=== PATIENT | female | born 1940 | race Caucasian/White ===

== ENCOUNTER → 2016-03-27 | Outpatient (CLI) | payer BC ==
[~2016-03-27] MED LIST: ASPI81TA28 PO; JUICE PLUS PO; MULT-190 PO; OXYC-57 PO; WARF2TAB PO
== END | disposition home or self-care (01) ==
LOC: C.RDSM 12:25
PROVIDERS: ATTEND Physical Medicine & Rehabilitation Sports Medicine
DX: Z96.643 Presence of artificial hip joint, bilateral (principal)

== ENCOUNTER → 2016-06-26 | Outpatient (CLI) | payer BC | END | disposition home or self-care (01) | LOC: C.RDSM 13:30 | PROVIDERS: ATTEND Physical Medicine & Rehabilitation Sports Medicine | DX: Z96.643 Presence of artificial hip joint, bilateral (principal) ==

== ENCOUNTER 2016-08-02 08:22 | Inpatient (IN) | payer BC, OTHER ==
[2016-07-14 11:30] VITALS: BMI 27.0
--- NOTE | 2016-07-14 12:06 | PAT Medication Instructions ---
Service Date Jul 14, 2016. Current Home Medication List Aspirin (Aspirin Ec), 81 MG PO QPM Ocuvite Preservision (Ocuvite Preservision), 1 TAB PO BID [Juice Plus], 2 CAPSULES PO TID Medication Instructions For Your Scheduled Surgery - Hold the following medications 2 weeks prior to surgery: [Juice Plus], 2 CAPSULES PO TID - Hold the following medications the morning of surgery: Ocuvite Preservision (Ocuvite Preservision), 1 TAB PO BID - Take the following medications as scheduled the night before surgery: Ocuvite Preservision (Ocuvite Preservision), 1 TAB PO BID Aspirin (Aspirin Ec), 81 MG PO QPM If you have any questions please call us at [phone] (Araceli Barclay PA-C) or [phone] or [phone]
--- NOTE | 2016-07-14 12:39 | DIAGNOSTIC IMAGING REPORT ---
CHEST 2 VIEWS ROUTINE CLINICAL HISTORY: Preoperative chest COMPARISON STUDY: November 2011 FINDINGS: The cardiac and mediastinal contours are normal. There is no evidence of focal pulmonary consolidation. There is no evidence of failure. No pleural effusions are visualized.[ IMPRESSION: No active disease in the chest. Electronically signed by: Osmany Wade M.D. 07/14/2016 12:38 PM Dictated Date/Time: 07/14/2016 12:38 PM
[2016-07-14 13:23] LABS: URINE APPEARANCE CLEAR (CLEAR); URINE BILIRUBIN NEG (NEG); URINE COLOR YELLOW; URINE NITRITE NEG (NEG); URINE PH 6.5 (4.5-7.5); URINE SPECIFIC GRAVITY 1.013 (1.000-1.030); UROBILINOGEN NEG (NEG)
[2016-07-14 13:24] LABS: MANUAL MICROSCOPIC REQUIRED? NO; REVIEW REQ? NO
[2016-07-14 13:28] LABS: PARTIAL THROMBOPLASTIN RATIO 1.1; PROTHROMBIN TIME (PATIENT) 10.7 SECONDS (9.0-12.0)
[2016-07-14 13:41] LABS: BUN/CREATININE RATIO 25.6 (10-20); CALCIUM 8.7 mg/dl (8.5-10.1); CREATININE 0.57 mg/dl (0.60-1.20); POTASSIUM 4.2 mmol/L (3.5-5.1)
--- NOTE | 2016-07-31 18:08 | HISTORY & PHYSICAL EXAMINATION ---
DATE OF ADMISSION: 08/02/2016 CHIEF COMPLAINT: Right hip poly wear. HISTORY OF PRESENT ILLNESS: This 75-year-old white female presents to the office with complaints of right hip unusual sensations. She denies any emerson pain. She feels as though the hip is sometimes loose or slipping. Occasional catching. She denies any dislocation. Symptoms are intermittent. Serial imaging overtime has revealed that the poly liner has asymmetric wear. Due to this, surgical intervention was recommended. She does not use any assistive devices. She denies any numbness or tingling. No difficulty with ADLs. No trauma since her hip replacement. She is scheduled to undergo a right hip open poly exchange with possible lock liner versus cup exchange on 08/02/2016. The initial right hip replacement was 12/21/2011. She initially had pain in her hip since August 2010 that was resolved with the hip replacement. No other complaints at this point. PREVIOUS SURGERIES: Tonsillectomy in 1945, right shoulder surgery in 1953, left total knee arthroplasty in 1997, left hip arthroplasty in 2003, right total knee arthroplasty in 2004, right total hip arthroplasty 12/21/2011, tubal ligation in 1971. PAST MEDICAL HISTORY: Significant for history of hepatitis A, GERD, low back pain, osteoarthritis, rosacea, and macular degeneration. ALLERGIES: KNOWN ALLERGY TO CODEINE WHICH CAUSES NAUSEA. FAMILY HISTORY: Significant for osteoarthritis, heart disease, hypertension, and basal cell skin cancer. CURRENT MEDICATIONS: Aspirin 81 mg daily, Juice Plus 2 capsules t.i.d., PreserVision 2 tablets p.o. daily. SOCIAL HISTORY: The patient is . No tobacco use. Retired. REVIEW OF SYSTEMS: Significant for above stated conditions, otherwise unremarkable. PHYSICAL EXAMINATION: GENERAL: Well-developed, well-nourished elderly white female in no acute distress. Sitting on a bed. Alert and oriented. SKIN: Warm and dry with good turgor. No rashes or lesions. No ecchymosis or erythema. HEENT: Normocephalic, atraumatic. Eyes PERRLA, EOMI. Nares patent bilaterally without turbinate enlargement. Oropharynx without erythema or exudate. No lesions noted. Uvula midline. Oral mucosa moist. Fair dentition. HEART: RRR. No MGR. LUNGS: Clear to auscultation bilaterally. No crackles, rhonchi or wheezing. Good air movement. ABDOMEN: Bowel sounds present x4, soft, nontender. No organomegaly. No masses. MUSCULOSKELETAL: Right hip evaluation reveals no obvious asymmetry or deformity. Supple motion forward flexion as well as internal and external rotation. No cogwheeling. No crepitus. Hip flexion is to just greater than 90 degrees. Ambulatory with a normal gait. No pain with palpation over the IT band, greater trochanter, or anterior flexion crease. NEUROLOGIC: Gross sensation is intact across the lower extremities by soft touch. Peripheral pulses are 2+. Cranial nerves II-XII are intact. DATA: Radiographic images previously obtained show superior migration of the ball within the cup. There is indication of asymmetric plastic liner wear. 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 PLAN: Informed written consent was obtained to proceed with right hip open poly exchange with possible lock liner versus cup exchange. Postoperative prescriptions for Percocet and Coumadin will be provided at discharge from the hospital. Anticipate discharge to home with outpatient PT. She already has a walker and cane. Medical clearance has been obtained from Dr. Olivier. Preoperative lab work has been ordered. ARNAV
[2016-08-02] VITALS (9 sets, daily range): BP systolic 98–138; BP diastolic 56–79; PULSE 75–85; TEMP 36.3–36.5; O2SAT 95–100; Ht 157.5 cm; Wt 67.9 kg
[~2016-08-02] VITALS: Ht 157.5 cm; Wt 67.9 kg
[~2016-08-02 08:22] MED LIST changes: +BUPIVACAINE 0.5 % 5 MG/1 ML PF 10ML VIAL ONE; +CEFAZOLIN 2000 MG/60 ML D5W 60 ML IV SCH; +LACTATED RINGER'S 1000ML 1,000 ML IV SCH; +LACTATED RINGER'S 1000ML 500 ML IV ONE; +LACTATED RINGER'S 1000ML IV SCH; -OXYC-57 PO; +ROPIVACAINE 5MG/ML 30 ML 150 MG, BUPIVACAINE/EPINEPHR 0.5% MPF 30 ML, KETOROLAC TROMETH... INFIL SCH; +TRANEXAMIC ACID INJ 1,000 MG in SODIUM CHLORIDE 0.9% 100ML 100 ML IV SCH; -WARF2TAB PO
--- NOTE | 2016-08-02 08:31 | History & Physical Bridge Note ---
H&P Re-Evaluation Bridge Note: I have examined the patient, reviewed the History & Physical and in the interval since the performance of the History & Physical I have noted the following changes of clinical significance: No changes noted
[2016-08-02] MEDS ORDERED: FENTANYL CITRATE INJ 50 MCG/1 ML 2 ML VIAL ONE (09:24)
[2016-08-02] MEDS ORDERED: MIDAZOLAM HCL 1 MG/ML 2ML VIAL ONE ×2 (09:24→11:00)
[2016-08-02] MEDS ORDERED: POVIDONE-IODINE OP SOLN 30 ML BTL ONE (10:25)
[2016-08-02] MEDS ORDERED: ORTHO JOINT ANESTHETIC ONE (10:25)
[2016-08-02] MEDS ORDERED: PROPOFOL IV EMULSION 10 MG/ML 20 ML VIAL IV ONE (11:07)
[2016-08-02] MEDS ORDERED: LIDOCAINE HCL 2% 2 ML VIAL (20MG/ML) ONE (11:07)
[2016-08-02] MEDS ORDERED: PHENYLEPHRINE 100MCG/ML 5ML SYR ONE (11:53)
[2016-08-02] MEDS ORDERED: EpHEDrine SULFATE 50MG/5ML SYR ONE (11:53)
[2016-08-02] MEDS ORDERED: EpHEDrine SULFATE INJ 50 MG/ML AMP ONE (11:57)
[2016-08-02] MEDS ORDERED: WATER, STERILE FOR INJ 10 ML VIAL ONE (11:57)
[2016-08-02] MEDS ORDERED: ONDANSETRON INJ 2 MG/ML 2 ML VIAL ONE ×2 (12:13→12:41)
[2016-08-02] MEDS ORDERED: DEXAMETHASONE SOD INJ 4 MG/ML VIAL ONE (12:13)
--- NOTE | 2016-08-02 12:31 | [facility] Post Operative Brief Note ---
Immediate Operative Summary Operative Date August 02, 2016. Pre-Operative Diagnosis Right Hip Total Hip Prosthesis Poly Wear Post-Operative Diagnosis Right Hip Total Hip Prosthesis Poly Wear Procedure(s) Performed Right Hip: Exchange of Femoral Head and Liner, and Excision of Trunionosis/metallosis Surgeon Dr. Calvillo Manager Quantitative Surgeon(s) Dr. Kevin Winters (Fellow)/[facility] Estimated Blood Loss 200 ml Findings bursitis/metallosis/fractured lipped liner poly/stable femoral and acetabular implants/mild tendonopathy abductors Fluids (cc crystalloids) 1700cc Specimens A. Metallosis/Trunionosis Right Hip B. Removed Hardware Right Hip (Femoral Head and Liner) Drains none Anesthesia spinal Complication(s) None Disposition Recovery Room / PACU
[2016-08-02] MEDS ORDERED: ACETAMINOPHEN 325 MG TAB PO PRN (12:45)
[2016-08-02] MEDS ORDERED: ATROPINE SULFATE 0.1 MG/ML 5ML SYR IV PRN (12:45)
[2016-08-02] MEDS ORDERED: MAGNESIUM HYDROXIDE SUSP 30 ML UDC PO PRN (12:45)
[2016-08-02] MEDS ORDERED: NALOXONE HCL 0.4 MG/1 ML VIAL/CARP IV PRN (12:45)
[2016-08-02] MEDS ORDERED: ALUMINUM/MAGNESIUM/SIMETH (MAALOX MAX) 30 ML UDC PO PRN (12:45)
[2016-08-02] MEDS ORDERED: FLUMAZENIL 0.1 MG/1 ML 10 ML VIAL IV PRN (12:45)
[2016-08-02] MEDS ORDERED: BISACODYL 10 MG SUPP PR PRN (12:45)
[2016-08-02] MEDS ORDERED: DiphenhydrAMINE HCL 50 MG/ML VIAL IV PRN (12:45)
[2016-08-02] MEDS ORDERED: EpHEDrine SULFATE INJ 50 MG/ML AMP IV PRN (12:45)
[2016-08-02] MEDS ORDERED: METOCLOPRAMIDE HCL INJ 5 MG/ML 2 ML VIAL IV PRN (12:45)
[2016-08-02] MEDS ORDERED: ONDANSETRON INJ 2 MG/ML 2 ML VIAL IV PRN ×2 (12:45)
--- NOTE | 2016-08-02 12:50 | OPERATIVE REPORT ---
DATE OF OPERATION: 08/02/2016 SURGEON: Dr. Calvillo. SERVICE CREW LEADER: Kristina. SECOND SERVICE CREW LEADER: Rashida. PREOPERATIVE DIAGNOSIS: Poly wear right hip in 5 years plus. POSTOPERATIVE DIAGNOSIS: Same with metalosis/trunnionosis. PERIOPERATIVE SITUATION: Medically cleared female who has really relatively asymptomatic, but on routine follow up x-ray started to see some superior lateral migration of the femoral head, indicating poly wear. She had no pain, occasionally would feel something click. She wanted to try to avoid having the procedure as long as possible; however, with the change in the x-ray was advised that this could be indicative of significant issues with the implant and before the whole thing needed to be replaced better off moving on it quickly. She agreed to do this. She understands the risk and consequence including recurrent problems with the implant fracture, nerve injury, instability. She wants to proceed with the procedure at this point in time based on advice from multiple people and considering everything herself. OPERATION: Exchange polyethylene liner, exchange femoral head, debridement of metalosis/trunnion bursa sac, debridement of bursitis, right hip. SUMMARY OF IMPLANTS: A 32 x 48 neutral liner, 32+9 Articul/Ean femoral head removed, 32+1 head, 32 x 48 x+410 degree liner. OPERATION PERFORMED: Extensive bursectomy and removal of metalosis/ trunnionosis. PROCEDURE: The patient appropriately identified, site verified, consent verified, 2 grams of Ancef confirmed as being given. The patient was placed in the left lateral decubitus position and right lower extremity prepped and draped in usual routine fashion. The old incision was then utilized, after surgical timeout performed, antibiotics confirmed as being given. The old incision was utilized and opened up. Once we got to the fascial layer, there was exuberant black fluid consistent with metalosis/trunnionosis. This was all debrided. Once the fluid was evacuated and care taken to dissect down to the joint. The hip abductors were intact. There was some minor bursal fraying but nothing that was detached fracture from the trochanter. Care was taken to tediously dissect along the femoral head, femoral neck and the proximal femur. Care taken to protect the sciatic nerve, which was palpated but not dissected. Once all this was cleaned out, the hip was then dislocated, it could be seen that the left part of the liner had failed. There was a fractured fragment, this was removed and the metalosis was likely from the head bumping on the anterior aspect of the rim of the cup. The trunnion itself did not look bad, there was no sharp fragments there. The head was removed and this was inspected carefully. The femoral stem was very very solid and the acetabular cup was very very solid. The hole eliminator and the screw were solid. Care was taken to tediously dissect the margin of the acetabular cup, so that the liner could be lined up. Once this was all done, irrigated with Pulsavac, irrigated with Betadine. The liner was seated and engaged then fit well and had no issues, decided to use a nonlipped liner. Once this was done, a trial head was seated and we added up the deficits in length to improve the leg lengths to a +9 and once we put this in there was excellent stability and excellent leg length methodist. Once this was verified, the trial head was removed. The permanent head seated it fit well. There was no sign of any problems with engaging into the trunnion and then the hip was reduced and irrigated with Betadine, irrigated with Pulsavac and then closed with #2 Vicryl, 2-0 Vicryl and stainless steel clips. Appropriate dressing applied. No ortho mix was utilized. Estimated blood loss 150 mL. Crystalloid 1700 mL. The specimen was sent to pathology and will be tracked by the company that made the implant due to the potential of issue with the implant failure. Will follow up in the office 2 weeks postop. DVT prophylaxis per Coumadin protocol. I attest to the content of the Intraoperative Record and any orders documented therein. Any exceptions are noted below. DEVAND
[2016-08-02] MEDS ORDERED: PROMETHAZINE HCL INJ 12.5 MG in SODIUM CHLORIDE 0.9% 50ML 50 ML IV STA (12:56)
--- NOTE | 2016-08-02 13:09 | DIAGNOSTIC IMAGING REPORT ---
[facility] History: Right total hip arthroplasty. Degenerative arthritis. Postop. FINDINGS: The patient is status post revision of a right total hip arthroplasty. The hardware is intact. No fracture or dislocation. Skin kian are in place. There is a prior left total hip arthroplasty. IMPRESSION: Right total hip arthroplasty revision. No evidence for hardware complication Electronically signed by: Adryan Deal M.D. 08/02/2016 1:08 PM Dictated Date/Time: 08/02/2016 1:07 PM
--- NOTE | 2016-08-02 13:34 | Anesthesiology Progress Note ---
Anesthesia Post Op Note Date & Time August 02, 2016 at 13:33 Vital Signs Pain Intensity: 0 Vital Signs Past 12 Hours Date Time Temp Pulse Resp B/P Pulse Ox O2 Delivery O2 Flow Rate FiO2 08/02/16 13:25 79 14 122/66 100 Nasal Cannula 2 08/02/16 13:15 67 14 117/67 99 Nasal Cannula 2 08/02/16 13:05 72 14 109/62 99 Nasal Cannula 2 08/02/16 12:55 82 14 125/64 99 Nasal Cannula 2 08/02/16 12:45 70 12 113/56 99 Nasal Cannula 2 08/02/16 12:35 75 15 109/51 100 Nasal Cannula 2 08/02/16 12:29 36.4 78 16 113/70 96 Nasal Cannula 2 08/02/16 08:48 36.4 76 18 138/79 99 Room Air Notes Mental Status: alert / awake / arousable, participated in evaluation Pt Amnestic to Procedure: Yes Nausea / Vomiting: adequately controlled Pain: adequately controlled Airway Patency, RR, SpO2: stable & adequate BP & HR: stable & adequate Hydration State: stable & adequate Neuraxial Anesthesia: was administered, sensory block is resolving Anesthetic Complications: no major complications apparent
--- NOTE | 2016-08-02 13:38 | PROGRESS NOTE ---
DATE: 08/02/2016 DATE: 08/02/2016. SUBJECTIVE: At this point in time she is doing well. She is in the recovery room. Her spinal is still in place. Denies chest pain, shortness of breath, fever or chills. Does have some nausea and mild emesis. Responds well to the Zofran. Vital signs are stable. She is afebrile. Neurovascular check is limited by the spinal being in place. Postop x-rays revealed concentrically aligned total hip replacement. No sign of any retained metal. ASSESSMENT: Doing well. Continue with care pathway. Advised concerning findings. Talked to the family in detail concerning the findings. Will continue with close observation with annual x-rays at a minimum, in the first year probably every 3 months.
[2016-08-02] MEDS ORDERED: D5W AND 1/2NSS + 20MEQ KCL 1,000 ML IV SCH (15:30)
[2016-08-02] MEDS ORDERED: OXYC-57 PO (15:47)
[2016-08-02] MEDS ORDERED: WARF2TAB PO (15:47)
[2016-08-02] MEDS ORDERED: WARFARIN SOD 5 MG TAB PO SCH (16:00)
[2016-08-02] MEDS: KETOROLAC TROMETHAMINE 15 MG/ML VIAL IV. SCH ×2 (16:17→21:08)
--- NOTE | 2016-08-02 16:40 | OPERATIVE REPORT ---
DATE OF OPERATION: 08/02/2016 PREOPERATIVE DIAGNOSIS: Right hip poly wear. POSTOPERATIVE DIAGNOSIS: Right hip same with trunnionosis. PROCEDURES: Right hip open poly exchange and femoral head exchange with debridement. SURGEON: Dr. Calvillo. PRESCHOOL AIDE: Dr. Acevedo. SECOND RESEARCH AND DEVELOPMENT SCIENTIST: Chapito Field PA-C. HISTORY OF PRESENT ILLNESS: This 75-year-old white female presented to the office with visible changes on x-ray, including migration of her femoral head within the acetabular cup. She has experienced no significant pain and no dislocations. Option of surgical intervention was discussed to prevent hip dislocation. She elected to proceed. Preoperative x-rays were obtained. DESCRIPTION OF PROCEDURE: The patient was administered spinal anesthetic and then taken to the operating room, where she was given sedation. She was prepped and draped in the usual sterile fashion. Please see Dr. Calvillo's operative report for specifics of the procedure. I was present for the entire case from initial patient positioning through final wound closure. Assistance was provided in patient positioning, tissue retraction, hemostasis, hardware extraction, hardware placement, and final wound closure. The patient was taken to the recovery room in satisfactory condition. I attest to the content of the Intraoperative Record and any orders documented therein. Any exceptio ns are noted below.
[2016-08-02] MEDS: ACETAMINOPHEN IV 1,000 MG in EMPTY BAG 0 ML IV SCH ×2 (16:42→23:40)
[2016-08-02] MEDS ORDERED: TRANEXAMIC ACID INJ 1,000 MG in SODIUM CHLORIDE 0.9% 100ML 100 ML IV SCH (18:30)
[2016-08-02] MEDS: FERROUS GLUCONATE 324 MG TAB PO SCH (19:07)
[2016-08-02] MEDS ORDERED: ASPIRIN 81 MG ECTAB PO SCH (21:00)
[2016-08-02] MEDS: DOCUSATE SODIUM 100 MG CAP PO SCH (21:07)
[2016-08-02] MEDS ORDERED: NURSING VERBAL MED ORDER ONE (21:30)
[2016-08-02] MEDS ORDERED: VANCOMYCIN INJ 1,000 MG in SODIUM CHLORIDE 0.9% 250ML 250 ML IV SCH (22:00)
[2016-08-03 03:20] VITALS: BP 99/67; PULSE 91; TEMP 36.5; O2SAT 96
[2016-08-03] MEDS: KETOROLAC TROMETHAMINE 15 MG/ML VIAL IV. SCH ×2 (03:38→10:12)
[2016-08-03 06:16] LABS: BASO % 0.1 %; BASO ABS # 0.01 K/uL (0-0.2); COMPLETE YES; HEMATOCRIT 33.4 % (37-47); IG% 0.1 %; LYMPH % 14.4 %; LYMPH ABS # 1.52 K/uL (1.2-3.4); MEAN CELL VOLUME 88.1 fL (80-100); MEAN CORPUSCULAR HEMOGLOBIN 28.5 pg (25-34); MEAN CORPUSCULAR HGB CONC 32.3 g/dl (32-36); MEAN PLATELET VOLUME 9.6 fL (7.4-10.4); NEUT % 78.4 %; PLATELET COUNT 265 K/uL (130-400); RED BLOOD COUNT 3.79 M/uL (4.2-5.4); WHITE BLOOD COUNT 10.55 K/uL (4.8-10.8)
[2016-08-03 06:37] LABS: INR 1.1 (0.9-1.1); PROTHROMBIN TIME (PATIENT) 11.6 SECONDS (9.0-12.0)
[2016-08-03 06:47] LABS: BUN/CREATININE RATIO 21.1 (10-20); CALCIUM 7.7 mg/dl (8.5-10.1); CREATININE 0.54 mg/dl (0.60-1.20)
--- NOTE | 2016-08-03 07:13 | PROGRESS NOTE ---
DATE: 08/03/2016 Postop check. Postop day #1 status post revision of poly liner debridement of metalosis . At this point in time, the patient is doing well, has no issues of pain. She denies any chest pain, shortness breath, fever, chills, nausea, vomiting or headache. Vital signs are stable. She is afebrile. Neurovascular check; femoral sciatic nerve is normal. LABORATORY WORK: This morning reveals hematocrit stable at 33.4, INR is 1.1. Chemistry is pending. Wound dressing is clean, dry and intact. ASSESSMENT: Overall, doing well. Plan is to discharge today. Discharge on 4 mg Coumadin daily. Check INR on Sunday. Coumadin dose per nomogram today. Will follow up in the office in 2 weeks for staple removal. ARNAV
[2016-08-03 07:19] VITALS: BP 108/70; PULSE 80; TEMP 36.3; O2SAT 96
[2016-08-03] MEDS ORDERED: DEXAMETHASONE INJ 10 MG in SYRINGE 0 ML IV SCH (07:30)
--- NOTE | 2016-08-03 07:33 | DISCHARGE SUMMARY ---
CHIEF COMPLAINT: Right poly wear hip replacement. HISTORY OF PRESENT ILLNESS: A 75-year-old female, with minimal symptoms, but had x-rays revealing significant poly wear after a hip replacement was done in 2011. At this point in time, she underwent the procedure. There was significant metallosis with this. We were able to verify that the cup was not loose or the stem was not loose. We were able to get the Lock liner in without any difficulty. She had significant debridement of the metallosis and the bursa. The hip abductors were intact. At this point in time she is ambulatory, feels well and has no issues. PREVIOUS SURGERIES: Include; tonsillectomy, shoulder surgery, knee replacement, hip replacement and bilaterally tubal ligation. PAST MEDICAL HISTORY: Remarkable for hepatitis A, GERD, back pain, arthritis, rosacea and macular degeneration. ALLERGIES: TO CODEINE WHICH CAUSES NAUSEA. FAMILY HISTORY: Remarkable for heart disease, hypertension and basal skin cancer. PREADMISSION MEDICATIONS: Include; aspirin, Juice Plus 2 capsules and PreserVision. SOCIAL HISTORY: Reveals she is . No tobacco or alcohol use. She is retired. REVIEW OF SYSTEMS: Reveals no issues at this point. See comments above. ASSESSMENT: Overall, doing well status post exchange of poly liner, debridement of metalosis and bursitis. Plan is to follow up in the office in 2 weeks for staple removal. Discharge on 4 mg Coumadin per day. Check INR on Sunday. Coumadin per nomogram today. MTDD
[2016-08-03] MEDS: ACETAMINOPHEN IV 1,000 MG in EMPTY BAG 0 ML IV SCH (08:07)
[2016-08-03] MEDS: DOCUSATE SODIUM 100 MG CAP PO SCH (08:09)
[2016-08-03] MEDS: FERROUS GLUCONATE 324 MG TAB PO SCH ×2 (08:09→13:00)
--- NOTE | 2016-08-03 08:11 | Anesthesiology Progress Note ---
Anesthesia Post Op Note Date & Time August 03, 2016 at 08:11 Vital Signs Pain Intensity: 0.0 Vital Signs Past 12 Hours Date Time Temp Pulse Resp B/P Pulse Ox O2 Delivery O2 Flow Rate FiO2 08/03/16 07:19 36.3 80 16 108/70 96 Room Air 08/03/16 03:20 36.5 91 16 99/67 96 Room Air 08/02/16 23:30 Room Air 08/02/16 23:01 36.3 82 18 103/68 96 Room Air Notes Mental Status: alert / awake / arousable, participated in evaluation Pt Amnestic to Procedure: Yes Nausea / Vomiting: adequately controlled Pain: adequately controlled Airway Patency, RR, SpO2: stable & adequate BP & HR: stable & adequate Hydration State: stable & adequate Neuraxial Anesthesia: sensory block resolved Anesthetic Complications: no major complications apparent
[2016-08-03] MEDS ORDERED: CEROVITE ADV FORMULA TAB PO SCH (09:00)
[2016-08-03] MEDS ORDERED: MULTIVITAMIN TAB PO SCH (09:00)
[2016-08-03] MEDS ORDERED: PANTOprazole SOD 40 MG TAB PO SCH (09:00)
--- NOTE | 2016-08-03 09:00 | Discharge Instructions ---
Discharge Instructions Date of Service August 02, 2016. Admission Reason for Admission: Right Hip Arthroplasty Poly Wear Discharge Discharge Diagnosis / Problem: Right hip s/p open poly exchange Discharge Goals Goal(s): Decrease discomfort, Increase independence Activity Recommendations Activity Limitations: as noted below Lifting Limitations: gradually increase as tolerated Exercise/Sports Limitations: until after follow-up appointment Shower/Bathe: keep incision dry Driving or Machine Use: No driving until cleared by Dr. Calvillo Weightbearing Status: Right weightbearing (as tolerated) . Instructions / Follow-Up Instructions / Follow-Up New Medicine: * You will likely be taking one or more of these medicines: 1. Percocet - Take, as directed, when you need it, every four to six hours to control your pain. 2. Coumadin - Thins your blood to lessen the chance of forming a blood clot. The dose of this is different for each person and is based on your blood tests that are done twice a week. * The most common side effects of pain medicine and iron are nausea and constipation. If nausea or constipation is too much of a problem or if you have any questions about your new medicines or doses, call [facility] at . We will try to help you manage these issues. VERY IMPORTANT TO READ AND REVIEW" Blood Clots and Blood Thinning Medicine: * You are given Coumadin during the immediate post-operative period to lessen the risk of blood clots forming in your legs and/or lungs. Coumadin is usually given for six weeks after surgery. * The prescription is for 2 mg tablets. At discharge, you should understand your dose and take it all at the same time every day, preferably after dinner. * You need to get your blood checked 1 - 2 times per week for six weeks, or as directed. * If your dose needs to change, we will call you. Do not take your medication on the day of the blood test until we call you. * If you don't hear from us after your blood draws, keep taking the same dose. Pain: * The immediate post-operative period after hip replacement surgery is often quite painful. * You are given a prescription for pain medicine. You should take it, as directed, when you need it, especially before physical therapy and before going to bed. Pain that interferes with sleep is very common and can last several months. * You will likely need pain medicine for the first two to four weeks. It will not stop all of the pain. The pain will lessen and as you feel better, you may change to milder pain medicine such as Tylenol. * The most common side effects of pain medicine are nausea and constipation, so don't take more than you need. Physical Therapy: * Follow the "Hip Precautions Instructions." * In some cases, the social sciences chair at the hospital will arrange to have a therapist come to your house for the first couple of weeks to help you learn these skills. * You need to practice on your own or with the help of a family member as needed. * When you learn these skills, most of the therapy can be done on your own. Home Exercise: * You were shown a series of exercises in the hospital. Do these exercises three to four times each day including the exercises you were shown in physical therapy. Walking: * Get up and walk several times each day. For the first four weeks, try not to stand or walk for more than one hour at a time. If you do stand or walk for more than one hour, you will not hurt anything, but your leg will likely swell. * As you feel comfortable, you may change from the walker or crutches to a cane and then to independent walking. SELF CARE INSTRUCTIONS AFTER TOTAL HIP REPLACEMENT Until the incision and soft tissues around your hip have healed, there is a possibility that the hip prosthesis could dislocate. A. Observe the following precautions to prevent dislocation: 1. Don't bend your hip greater than 90 degrees. 2. Avoid crossing your legs or ankles while standing or lying. 3. Sit with your feet placed 6 inches apart. 4. When sitting, keep your knees below your hips. Sit on a firm surface, avoid deep, soft chairs and couches. Use an elevated toilet seat in the bathroom. 5. Don't bend over at the waist. Use a long handled shoehorn and a sock aid to help you put on your shoes and socks. A research and evaluation manager can help you pick up truck driver objects that are too high or too low to reach. 6. Keep car riding to a minimum for at least one month after surgery. B. Your balance may be shaky for a while. Use crutches or a walker until directed by your doctor. C. Use hand rails when walking on stairs. D. Wear low heeled shoes with non-slip soles. E. Be sure that your floors are free of things that could trip you - throw rugs , electrical cords, small objects. Avoid wet and waxed floors, especially with crutches and canes. F. Try to walk several times a day with rest periods between. G. Continue with all the exercises taught to you in the hospital. Again, make walking a part of your daily routine. VERY IMPORTANT TO READ AND REVIEW A. Take Coumadin, or Lovenox (blood thinning medications) as directed by your doctor. If you are on Coumadin, have a pro-time (blood test) drawn according to your doctor's instructions. This will tell the doctor how well the Coumadin is thinning your blood. B. There are a few signs you need to watch for after you are home. If you notice any of the followin. Increased severe hip pain. Some pain is expected especially when you exercise. 2. Increased swelling in your leg or knee; pain or swelling of the calf muscle in either lower leg. 3. Any fluid drainage from the incision. 4. Shortness of breath or chest pain. TEDs/Elastic Stockings: * The white elastic stockings help limit swelling and prevent blood clots from forming in your legs. The more you wear them, the more they work. * Wear them for six weeks. Prevention of Infection: * Take antibiotics one hour before any dental cleaning, dental work, urological procedure, gastrointestinal procedure or any invasive surgery in order to prevent your new joint from getting infected. * You may get the antibiotics from the doctor performing the procedure or we will call in a prescription to the pharmacy of your choice. Call the office for a prescription at least 2 days prior to your appointment. Things to Watch For: * Drainage from the incision site that occurs more than one week after your surgery. * Severely increased leg pain or swelling. * Increased redness at the incision site. * Fever above 101 degrees Fahrenheit. * Unusual chest pain or shortness of breath. * Unusual pain or burning with urination. Current Hospital Diet Patient's current hospital diet: AHA Diet (Heart Healthy) Discharge Diet Recommended Diet: Regular Diet Procedures Procedures Performed: Right Hip: Exchange of Femoral Head and Liner, and Excision of Trunionosis/metallosis Pending Studies Studies pending at discharge: no Medical Emergencies . Who to Call and When: Medical Emergencies: If at any time you feel your situation is an emergency, please call 911 immediately. . Non-Emergent Contact Non-Emergency issues call your: Primary Care Provider, Surgeon Call Non-Emergent contact if: temperature is above 101, wound has increased drainage, wound has increased redness, wound has increased pain, you have any medication questions . "Provider Documentation" section prepared by Chapito Field PA-C. . VTE Core Measure Inpt VTE Proph given/why not?: Warfarin (Coumadin), TMiquel Barron, SCD's [place] Drug Monitoring Program Search Results: no issues identified
--- NOTE | 2016-08-03 09:00 | Progress Note ---
Orthopedic SOAP Note Subjective Date of Service: August 03, 2016. Post OP Day: 1 Reports: feeling well, pain controlled w PO medications (doing well without narcotic pain medication), Denies: SOB, calf pain, chest pain, complaints, light headedness, nausea / vomiting, using PUBLIC RELATIONS COORDINATOR Objective calves soft nontender, N/V intact, hip located, capillary refill less than 2 sec., dressing C/D/I, incision C/D/I, A&O x3, toes mobile patient doing extremely well sitting bedside eating breakfast reports minimal pain in right hip I changed her dressing, applied compressive dressing with multidirectional metapore tape application Date Time Temp Pulse Resp B/P Pulse Ox O2 Delivery O2 Flow Rate FiO2 08/03/16 07:19 36.3 80 16 108/70 96 Room Air 08/03/16 03:20 36.5 91 16 99/67 96 Room Air 08/02/16 23:30 Room Air 08/02/16 23:01 36.3 82 18 103/68 96 Room Air 08/02/16 19:01 36.5 85 18 98/64 95 Room Air 08/02/16 17:10 36.4 78 16 105/70 98 Nasal Cannula 2.0 08/02/16 16:15 36.5 85 16 119/77 100 Nasal Cannula 2.0 08/02/16 16:00 100 Nasal Cannula 2.0 08/02/16 15:15 36.5 78 16 99/56 100 Nasal Cannula 2.0 08/02/16 14:45 36.4 75 16 110/62 100 Nasal Cannula 2.0 08/02/16 14:45 100 Nasal Cannula 2.0 08/02/16 14:26 100 Nasal Cannula 2.0 08/02/16 14:15 36.4 75 16 121/72 100 Nasal Cannula 2.0 08/02/16 13:50 37.2 74 18 107/61 100 Nasal Cannula 2 08/02/16 13:35 37.2 72 18 114/63 100 Nasal Cannula 2 08/02/16 13:25 79 14 122/66 100 Nasal Cannula 2 08/02/16 13:15 67 14 117/67 99 Nasal Cannula 2 08/02/16 13:05 72 14 109/62 99 Nasal Cannula 2 08/02/16 12:55 82 14 125/64 99 Nasal Cannula 2 08/02/16 12:45 70 12 113/56 99 Nasal Cannula 2 08/02/16 12:35 75 15 109/51 100 Nasal Cannula 2 08/02/16 12:29 36.4 78 16 113/70 96 Nasal Cannula 2 Laboratory Results 24 Hours: Test 08/03/16 05:16 White Blood Count 10.55 K/uL Red Blood Count 3.79 M/uL Hemoglobin 10.8 g/dL Hematocrit 33.4 % Mean Corpuscular Volume 88.1 fL Mean Corpuscular Hemoglobin 28.5 pg Mean Corpuscular Hemoglobin Concent 32.3 g/dl Platelet Count 265 K/uL Mean Platelet Volume 9.6 fL Neutrophils (%) (Auto) 78.4 % Lymphocytes (%) (Auto) 14.4 % Monocytes (%) (Auto) 7.0 % Eosinophils (%) (Auto) 0.0 % Basophils (%) (Auto) 0.1 % Neutrophils # (Auto) 8.27 K/uL Lymphocytes # (Auto) 1.52 K/uL Monocytes # (Auto) 0.74 K/uL Eosinophils # (Auto) 0.00 K/uL Basophils # (Auto) 0.01 K/uL Prothromb Time International Ratio 1.1 Prothrombin Time 11.6 SECONDS Assessment post op day 1 Right hip open poly exchange and femoral head exchange with debridement. Plan continue post op care total hip precautions DVT prophylaxis with Coumadin x 3 weeks with target INR 1.8-2.2 then additional 3 weeks of ASA WBAT right LE with walker pain control with Tylenol per patient, absolute refusal of narcotic pain med prescription ice right hip resume diet abduction pillow while in bed 2 week follow up for staple removal discharge home today
[2016-08-03 11:11] VITALS: BP 118/76; PULSE 83; TEMP 36.8; O2SAT 97
[2016-08-03] MEDS ORDERED: WARFARIN SOD 5 MG TAB PO ONE (12:00)
[2016-08-03] MEDS ORDERED: AZITHROMYCIN 250 MG TAB PO ONE (12:15)
--- NOTE | 2016-08-05 12:34 | EDITING REQUIRED CODING QUERY ---
DEBRIDEMENT DOCUMENTATION To promote full compliance with coding requirements relating to patient care, physician participation is requested in all cases of splitting machine operator uncertainty. Please assist us with the question(s) below: Please place an X in the parenthesis (x). If other, please document the finding: Type of Debridement: ( ) Excisional Debridement- Cutting away necrotic, devitalized tissue or slough to the level of viable tissue using a sharp instrument (i.e. scalpel, scissors, etc.) ( ) Non Excisional Debridement- The removal of necrotic, devitalized tissue or slough by means of scraping, mechanical brushing, flushing, or washing (i.e. irrigation,whirlpool);minor removal of loose fragments. ( x) Other (please specify):reactive tissue_no necrotic tissue present Thank you for your time, SALONI Loyola, INTERVENTIONAL PHYSICIAN
== END 2016-08-03 14:00 | disposition home or self-care (01) | DRG 468 ==
LOC: ENRESERVTM → ENRESERVDT → C.ACU 08:22 → C.3E 08:30
PROVIDERS: ADMIT Physical Medicine & Rehabilitation Sports Medicine; ATTEND Physical Medicine & Rehabilitation Sports Medicine
PROC: 0SP909Z Removal of Liner from Right Hip Joint, Open Approach (ICD-10-PCS; principal; 2016-08-02 10:40)
PROC: 0SPR0JZ Removal of Synthetic Substitute from Right Hip Joint, Femoral Surface, Open Approach (ICD-10-PCS; principal; 2016-08-02 10:40)
PROC: 0MBL0ZZ Excision of Right Hip Bursa and Ligament, Open Approach (ICD-10-PCS; principal; 2016-08-02 10:40)
PROC: 0SRR01Z Replacement of Right Hip Joint, Femoral Surface with Metal Synthetic Substitute, Open Approach (ICD-10-PCS; principal; 2016-08-02 10:40)
PROC: 0SUA09Z Supplement Right Hip Joint, Acetabular Surface with Liner, Open Approach (ICD-10-PCS; principal; 2016-08-02 10:40)
DX: T84.060A Wear of articular bearing surface of internal prosthetic right hip joint, initial encounter (principal); T84.090A Other mechanical complication of internal right hip prosthesis, initial encounter; Y79.2 Prosthetic and other implants, materials and accessory orthopedic devices associated with adverse incidents; M19.90 Unspecified osteoarthritis, unspecified site; Z96.643 Presence of artificial hip joint, bilateral; Z96.653 Presence of artificial knee joint, bilateral; Z86.718 Personal history of other venous thrombosis and embolism; Z79.82 Long term (current) use of aspirin

== ENCOUNTER → 2016-09-18 | Outpatient (CLI) | payer BC, OTHER ==
[~2016-09-18] MED LIST changes: -BUPIVACAINE 0.5 % 5 MG/1 ML PF 10ML VIAL ONE; -CEFAZOLIN 2000 MG/60 ML D5W 60 ML IV SCH; -LACTATED RINGER'S 1000ML 1,000 ML IV SCH; -LACTATED RINGER'S 1000ML 500 ML IV ONE; -LACTATED RINGER'S 1000ML IV SCH; -ROPIVACAINE 5MG/ML 30 ML 150 MG, BUPIVACAINE/EPINEPHR 0.5% MPF 30 ML, KETOROLAC TROMETH... INFIL SCH; -TRANEXAMIC ACID INJ 1,000 MG in SODIUM CHLORIDE 0.9% 100ML 100 ML IV SCH; +WARF2TAB PO
== END | disposition home or self-care (01) ==
LOC: C.RDSM 07:00
PROVIDERS: ATTEND Physical Medicine & Rehabilitation Sports Medicine
DX: Z96.641 Presence of right artificial hip joint (principal)

== ENCOUNTER → 2017-01-01 | Outpatient (CLI) | payer BC | END | disposition home or self-care (01) | LOC: C.RDSM 13:31 | PROVIDERS: ATTEND Physical Medicine & Rehabilitation Sports Medicine | DX: Z96.643 Presence of artificial hip joint, bilateral (principal) ==

== ENCOUNTER 2023-06-05 05:18 | Observation (INO) ==
--- NOTE | 2023-05-08 09:22 | PAT Medication Instructions ---
Medication Instructions Date of Service May 08, 2023 Home Medications Juice Plus 1 cap PO BID Juice Plus Kevin 1 cap PO BID Juice Plus Milmay 9 1 cap PO BID Juice Plus Vegetable 1 cap PO BID [place] 1 tab PO QAM ascorbic acid (vitamin C) 500 mg tablet (Vitamin C) 500 mg PO HS cholecalciferol (vitamin D3) 10 mcg (400 unit) capsule (Vitamin D3) 10 mcg PO QAM ferrous sulfate 142 mg (45 mg iron) tablet,extended release 142 mg PO HS omeprazole 40 mg capsule,delayed release 40 mg PO QPM STOP taking 2 weeks before surgery (or as soon as possible if surgery is within 2 weeks) Juice Plus 1 cap PO BID Juice Plus Kevin 1 cap PO BID Juice Plus Milmay 9 1 cap PO BID Juice Plus Vegetable 1 cap PO BID [place]uguard 1 tab PO QAM DO NOT take the morning of surgery cholecalciferol (vitamin D3) 10 mcg (400 unit) capsule (Vitamin D3) 10 mcg PO QAM Take evening before surgery ascorbic acid (vitamin C) 500 mg tablet (Vitamin C) 500 mg PO HS ferrous sulfate 142 mg (45 mg iron) tablet,extended release 142 mg PO HS omeprazole 40 mg capsule,delayed release 40 mg PO QPM Other Notes If you have any questions please call us at [phone] or [phone] or [phone] or [phone]
--- NOTE | 2023-05-14 14:38 | Anesthesiology Consultation ---
Date of Service May 14, 2023 Assessment & Plan (1) Encounter for pre-operative examination: - Infectious disease screening: Per assessment on 05/14/23: No current infectious disease symptoms. No noted recent Covid positive test result. Patient had Covid exposure while at [facility] 05/06/23 (spoke with person for short period of time but was otherwise not in close contact with them). Patient seen at [facility] 05/14/23 > she did not develop symptoms after exposure. Patient advised to contact PAT/surgeon if development of symptoms prior to surgery. DOS not until 06/05/23. - Outpatient joint assessment: Pt currently scheduled for inpatient pathway. If surgeon requests review for outpatient joint pathway, patient is not recommended candidate for outpatient joint program from anesthesia standpoint based upon available information. - Patient acceptable risk for surgery pending surgeon-ordered PCP preop evaluation (Dr. Olivier, appt 05/21). Chart Review Chart Review: Patient seen in Pre Admission Testing Teaching & Discussion Pre-Anesthesia Teaching/Discussion Notes: Instructed NPO after midnight before surgery,except medications with 15 cc of water. Medication instructions provided according to the [facility] guidelines. History Surgery Operation Date: 06/05/23 10:20 Proposed Procedures p Right Reverse Total Shoulder Arthroplasty - Vijay Katy Villalta MD Height/Weight Height: 5 ft 2 in Weight: 69.7 kg Allergies Allergy/AdvReac Type Severity Reaction Status Date / Time codeine AdvReac Unknown N/V Verified 05/14/23 10:43 Medications Home Medications Medication Instructions Recorded Confirmed Last Taken Juice Plus 1 cap PO BID 01/14/18 05/07/23 01/23/18 18:00 Juice Plus Kevin 1 cap PO BID 01/14/18 05/07/23 01/23/18 18:00 Juice Plus [place] 9 1 cap PO BID 05/07/23 05/07/23 Unknown Juice Plus Vegetable 1 cap PO BID 05/07/23 05/07/23 Unknown Macuguard 1 tab PO QAM 05/07/23 05/07/23 Unknown ascorbic acid (vitamin C) 500 mg 500 mg PO HS 05/07/23 05/07/23 Unknown tablet (Vitamin C) cholecalciferol (vitamin D3) 10 10 mcg PO QAM 05/07/23 05/07/23 Unknown mcg (400 unit) capsule (Vitamin D3) ferrous sulfate 142 mg (45 mg 142 mg PO HS 05/07/23 05/07/23 Unknown iron) tablet,extended release omeprazole 40 mg capsule,delayed 40 mg PO QPM 05/07/23 05/07/23 Unknown release Past Medical History Medical History GERD (gastroesophageal reflux disease) Hepatitis A ~1994 Hiatal hernia History of vertigo Macular degeneration KACEY (obstructive sleep apnea) CPAP (compliant) Osteoarthritis Superficial thrombophlebitis LE US 03/22/10: findings c/w superficial thrombophlebitis. Technically there is not DVT. although this superficial thrombus is moderate in extent and extends right to the saphenopopliteal junction > no issues since Exercise / Class Metabolic Activity II 4-5 Yardwork/Stairs/Walk up hill (one FS (no CP, no SOB)) Past Family History Family History Other Asthma Cancer Heart disease Hypertension Past Surgical History Surgical History History of bilateral tubal ligation History of colonoscopy History of esophagogastroduodenoscopy (EGD) History of shoulder surgery Right shoulder fracture (age 13) History of tonsillectomy History of tooth extraction History of total hip arthroplasty R/L (2 right hip surgery/revisions) History of total knee replacement R/L Nausea and vomiting after administration of anesthetic agent Slow to wake up after anesthesia Past Anesthesia History No Family Hx of Anesthesia Complications and Other (Slow to wake) History of PONV History of PONV and Hx of Motion Sickness (Remote hx as child) Social History Smoking Status: Never smoker Do You Dip or Chew Tobacco: No Hx Alcohol Use: No Hx Substance Use: No substance use type: does not use Review of Systems Patient denies chest pain, shortness of breath, dyspnea on exertion, fever, chills, cough, wheezing, palpitations. Physical Exam Vital Signs BP 123/78 P 74 TEMP 98.0 SP02 95%RA RESP 16 Physical Full cervical extension range of motion. Full TMJ range of motion. TMD 3 finger breaths Mallampati Score 3 Dentition: intact, + crowns Lungs: clear throughout to auscultation Cardiac: regular rate and rhythm, no murmurs noted Spine: normal Carotid arteries: negative bruit Extremities: no LE edema Lab Results Anesthesia Preop Results Results Anesthesia Widget: WBC 5.65 K/ul (4.8-10.8) 05/14/23 Hgb 13.0 g/dl (12.0-16.0) 05/14/23 Hct 37.6 % (37.0-47.0) 05/14/23 Plt 257 K/uL (130-400) 05/14/23 Na 141 mmol/L (136-145) 05/14/23 K 3.9 mmol/L (3.5-5.1) 05/14/23 Cl 111 mmol/L (98-107) H 05/14/23 CO2 24 mmol/L (21-32) 05/14/23 BUN 19 mg/dl (6-23) 05/14/23 Creat 0.53 mg/dl (0.6-1.2) L 05/14/23 Glucose Level 89 mg/dl (70-99(Fasting)) 05/14/23 PT 10.8 Seconds (9.0-12.0) 05/14/23 PTT 28 Seconds (21-31) 05/14/23 INR 1.0 (0.9-1.1) 05/14/23 Urine Color Yellow 05/14/23 Urine Appearance Clear (Clear) 05/14/23 Urine pH 6.5 (4.5-7.5) 05/14/23 Urine Specific [place] 1.009 (1.000-1.030) 05/14/23 Urine Protein Negative (Negative) 05/14/23 Urine Glucose (UA) Negative (Negative) 05/14/23 Urine Ketones Negative (Negative) 05/14/23 Urine Blood Negative (Negative) 05/14/23 Urine Nitrite Negative (Negative) 05/14/23 Urine Bilirubin Negative (Negative) 05/14/23 Urine Urobilinogen Negative (Negative) 05/14/23 Urine Leukocyte Esterase 1+ (Negative) H 05/14/23 Urine WBC (Auto) 1-5 /hpf (0-5) 05/14/23 Urine RBC (Auto) 0-4 /hpf (0-4) 05/14/23 Urine Hyaline Casts (Auto) 0 /lpf (0-5) 05/14/23 Urine Epithelial Cells (Auto) 5-10 /lpf (0-5) H 05/14/23 Urine Bacteria (Auto) Negative (Negative) 05/14/23 Blood Type A Positive 05/14/23 Antibody Screen NEGATIVE 05/14/23 Testing Laboratory Results 05/02/23 Iron 93 Unsaturated IBC 194 Electrocardiogram Date: 05/14/23 NSR at 68bpm. Low voltage QRS. No significant change compared to 01/14/2018 per vehicle sales professional comparison. Chest X-Ray Date: 05/14/23 FINDINGS: PA and lateral chest radiographs are compared to study dated 01/14/2018. The cardiomediastinal silhouette is unremarkable noting atherosclerotic calcification of the thoracic aorta. There is mild bibasilar scarring/atelectasis. The lungs and pleural spaces are otherwise clear. There is no pneumothorax. The skeletal structures are osteopenic. The bony thorax appears intact. Arthritic change is seen in the shoulders. There is a mild compression deformity in the upper lumbar spine. IMPRESSION: No active disease in the chest.
--- OUTSIDE RECORDS SUMMARY | 2023-06-05 05:41 | External Medical Summary | Continuity of Care Document ---
Author Name Unknown Organization [facility] [id number] Address [address] [place] [id number] Care Team Providers Care Content Coordinator Name Role Phone Elaine Olivierirving Greene Primary Care Physician [phone] Encounter [facility] [id number] Date(s): 05/28/23 - 05/28/23 [facility] [place] [id number] [address] [place], [place] [id number] Encounter Diagnosis Status post bilateral total hip replacement(Discharge Diagnosis) - 05/28/23 Discharge Disposition: Home or Self Care Attending Physician: MD Calvillo Wayne J Allergies, Adverse Reactions, Alerts Substance Reaction Severity Status codeine nausea Active Immunizations Given and Recorded Vaccine Date Status Refusal Reason pneumococcal 13-valent vaccine 12/07/16 Given zoster vaccine live 11/07/11 Recorded pneumococcal 23-valent vaccine 04/04/07 Recorded tetanus/diphtheria/pertuss, acel (Tdap) 03/25/07 R ecorded Medications juice plus juice plus, 2 caps, tid, 10/26/11 14:20:29 EDT, Maintenance, juice plus [facility] Start Date: 10/26/11 Status: Ordered nystatin 100,000 units/g topical cream Start: 01/24/23 11:29:00 EST, See Instructions, Disp# 30 g, Refills: 0, apply BID, Pharmacy: [facility] Start Date: 01/24/23 Status: Ordered [place] [facility] Start: 12/31/17 13:05:00 EDT Start Date: 12/31/17 Status: Ordered omeprazole 40 mg oral delayed release capsule Start: 05/22/23 11:58:00 EST, 1 cap, PO, Daily, Disp# 90 cap, Refills: 3, Pharmacy: [facility] Start Date: 05/22/23 Status: Ordered Slow Fe Start: 01/24/23 10:43:00 EST Start Date: 01/24/23 Status: Ordered unknown medication Start: 04/17/18 10:04:00 EST, cpap machine Start Date: 04/17/18 Status: Ordered unknown medication Start: 05/08/22 14:27:00 EST, macugaurd Start Date: 05/08/22 Status: Ordered Vitamin C Start: 01/24/23 10:44:00 EST Start Date: 01/24/23 Status: Ordered Vitamin D3 Start: 11/14/21 10:52:00 EDT Start Date: 11/14/21 Status: Ordered Mental Status 05/28/23 Barriers to Learning one year None evide nt Mandatory Health Literacy Documentation Yes Health Literacy Communication Barriers N ever Primary Language Lao Problem List Condition Confirmation Course Effective Dates Status H ealth Status Informant Anemia Confirmed Active Bone pain Confirmed Active Chronic vertigo Confirmed Active Estrogen deficiency Confirmed Active DJD (degenerative joint disease) of hip 1 Confirmed Active GERD without esophagitis Confirmed Active S/P total hip arthroplasty Confirmed Active History of hepatitis Confirmed Active Status post bilateral total hip replacement Confirmed Active Hx of gallstones Confirmed Active Infected nail bed of toe Confirmed Active Intertrigo Confirmed Active Iron deficiency Confirmed Active Macular degeneration Confirmed Active Medicare annual wellness visit, subsequent Confirmed Active Polyarthralgia Confirmed Active KACEY on CPAP Confirmed Active Osteoarthritis of right shoulder region Confirmed Active Right shoulder pain Confirmed Active Pre-op exam Confirmed Active Prophylactic antibiotic therapy Confirmed Active Rosacea Confirmed Active Skin lesion Confirmed Active Vertigo Confirmed Active 1right Diagnosis Diagnosis Type Effective Dates Health Status Clinical Service Informant Status post bilateral total hip replacement Discharge Diagnosis 05/28/23 Procedures Procedure Date Related Diagnosis Body Site Status Colonoscopy 1, 2, 3 02/22/23 Compl eted EGD - esophagogastroduodenoscopy 4, 5 02/22/23 Completed DEXA (dual energy X-ray absorptiometry) of lateral spine 01/27/20 Completed Mammogram 6 01/27/20 Completed Right hip open poly exchange and femoral head exchange 07/25/16 Completed DEXA - Dual energy X-ray germaine ton absorptiometry 7 02/25/15 Completed Mammogram 02/25/15 Completed Right SONG 12/21/11 Completed colonoscopy 2007-2017 Completed dexa 10/26 Completed Left Hip replacement 2001 Completed Left knee replacement 98 Completed Right knee 2004 Completed Shoulder 8 Completed TKR -Total prosthetic replac ement of knee joint using cement 9 Comple tal Tonsillectomy 10 Complete d Tubal ligation 72 Complet ed 1D) Colon polyp at 60cm, polypectomy: Segments of sessile serrated polyp. E) Rectal polyp, polypectomy: Segments of hyperplastic polyp. 2Repeat colonoscopy for screening is not indicated given age of 82 at present 3- One 8 mm polyp at 60 cm proximal to the anus, removed with a cold snare. Resected and retrieved. - Two 2 mm polyps in the rectum, removed with a cold biopsy forceps. Resected and retrieved. - Diverticulosis in the right colon. - The examination was otherwise normal on direct and retroflexion views. 4A) Duodenum, biopsy: No significant pathology. B) Gastric antrum, biopsy: Acute erosive gastritis arising in the background of chronic gastritis. COMMENT: The biopsy contains gastric mucosa with a moderate chronic gastritis. In addition, there are focal areas of congestion-hemorrhage and repair compatible with acute erosion. No Helicobacter pylori organisms can be identified on Warthin-Starrystain. C) Gastroesophageal junction, biopsy: Segments of squamous mucosa with epithelial repair and single segment of gastric columnar mucosa with chronic inflammation and epithelial repair. COMMENT: No intestinal metaplasia or dysplasia identified. No Helicobacter pylori organisms are identified on Warthin-Starry stain. 5- Esophagogastric landmarks identified. - Moderate Schatzki ring. Biopsied. - 6 cm hiatal hernia. - Erosive gastritis with black eschar and black blood and friability of body and antrum. Biopsies of antrum taken. - Normal second portion of the duodenum. Biopsied. - The examination was otherwise normal. 6wnl 7at [facility] 8right 9B/L 10adenoidectomy Social History Social History Type Response Smoking Status Never smoked cigaret cyril Sex Female Ortho Outpt Note * Patti Moore: PERFORM Event Display: Ortho Outpt Note Authored Date: Name:JENNIFER CASTILLO Patient Number:[id number] :1940 Date of Service:05/28/2023 CHIEF COMPLAINT: Follow-up s/p bilateral SONG HPI: [id number] yearoldFechristiano presents today forcontinued evaluation s/p bilateral SONG. Overall she continues to do well and has no complaints of pain. She is scheduled for areverse right TSA with Dr. Villalta Patient states she has pain and limited ROM with simple movements. PHYSICAL EXAM: Focus on bilateral lower extremities: Femoral and sciatic nerve function intact. Supple hip ROM DIAGNOSTIC REVIEW: I obtained and personally interpreted 2 views of both hips which shows a well- fixed, well-aligned bilateral hip replacements. IMPRESSION: s/p bilateral hip replacements PLAN: Follow-up in 12-18 months for the bilateral hips with x-rays. Would be happy to see her for the shoulder as well ATTESTATION: I,Patti Moore, scribing for and in the presence of, Eric Calvillo, on this date,05/28/2023 13:53:24. Electronic Signature on File Electronically Reviewed/Signed by: Patti Moore Author Signature Dt/Tm:05/28/2023 02:08 PM Electronically Reviewed/Signed by: Eric Calvillo MD Cosigner Signature Dt/Tm: 05/28/2023 03:10 PM Contract Modeler for Clinical Affairs, [facility] [employer] Professor in Orthopaedics Lawyers, [facility] [place] Patient Care team information Care Team Personnel Name: DO Olivier Kristen M Position: Physician - Family Med Member Role: Primary Care Provider Address: Address: [address] [place] [address] [place] Name: MD Calvillo Wayne J Position: Physician - Sports Medicine [place] Member Role: Lifetime Relationship Address: Address: [address] [place] [address] [place] Care Team Related Persons Name: LOULOU FONTENOT Address: home [address], [place] [id number]
[2023-06-05] MEDS: Scopolamine 1 MG TDSY TD SCH (05:47)
[2023-06-05] MEDS: CeleBREX 200 MG CAP PO SCH (05:47)
[2023-06-05] MEDS: LR 60ML/HR IV SCH (05:47)
[2023-06-05] MEDS: LR 15ML/HR IV SCH (06:16)
[2023-06-05] MEDS ORDERED: BUPIVACAINE 0.5 % 5 MG/1 ML PF 10ML VIAL ONE (06:24)
--- NOTE | 2023-06-05 06:37 | History & Physical Bridge Note ---
Date of Service June 05, 2023 History & Physical Bridge Note I have examined the patient, reviewed the History & Physical and in the interval since the performance of the History & Physical I have noted the following changes of clinical significance: no changes noted
[2023-06-05] MEDS ORDERED: ROCURONIUM BROMIDE 10 MG/ML 5 ML VIAL IV ONE ×2 (06:40→10:00)
[2023-06-05] MEDS ORDERED: fentaNYL citrate PF 100 MCG/2 ML VIAL ONE (06:40)
[2023-06-05] MEDS ORDERED: PROPOFOL IV EMULSION 10 MG/ML 20 ML VIAL IV ONE (06:40)
[2023-06-05] MEDS: TRANEXAMIC ACID 1,000 MG **IV Pre-op IV SCH (06:53)
[2023-06-05] MEDS: ceFAZolin 2000MG 2,000 MG/15 ML SYR IV SCH (07:00)
[2023-06-05] MEDS ORDERED: ATROPINE SULFATE 0.1 MG/ML 10ML SYR IV PRN (07:19)
[2023-06-05] MEDS ORDERED: fentaNYL citrate PF 100 MCG/2 ML VIAL IV PRN (07:19)
[2023-06-05] MEDS ORDERED: ONDANSETRON INJ 2 MG/ML 2 ML VIAL IV PRN ×2 (07:19→11:54)
[2023-06-05] MEDS ORDERED: ePHEDrine sulfate 50 MG/ML AMP IV PRN (07:19)
[2023-06-05] MEDS ORDERED: ONDANSETRON INJ 2 MG/ML 2 ML VIAL ONE (07:22)
[2023-06-05] MEDS ORDERED: DEXAMETHASONE SOD INJ 4 MG/ML VIAL ONE (07:22)
[2023-06-05] MEDS ORDERED: SUGAMMADEX SODIUM 200 MG/2 ML VIAL IV ONE (07:22)
[2023-06-05] MEDS ORDERED: ePHEDrine sulfate 50 MG/5 ML SYR ONE (07:37)
[2023-06-05] MEDS: ORTHO JOINT ANESTHETIC ONE (09:10)
[2023-06-05] MEDS: TRANEXAMIC ACID 1,000 MG **IV Intra-op IV SCH (09:26)
[2023-06-05] MEDS: ROPIV 0.5% 246mg, Ketorolac 30mg, EPINEPHrine 0.5mg in NSS INFIL SCH (10:21)
--- NOTE | 2023-06-05 10:33 | Post Operative Brief Note ---
Immediate Post Op Note v1 Date of Surgery June 05, 2023 Pre & Post Diagnosis Operation Date: 06/05/23 07:00 Pre-Op Diagnosis: Right Shoulder Arthritis with Rotator Cuff Tear Post-Op Diagnosis: Right Shoulder Arthritis with Rotator Cuff Tear I identified the patient and participated in the time-out.: Yes Procedure Operation Date: 06/05/23 07:00 Actual Procedures p Right Reverse Total Shoulder Arthroplasty(Right) - Vijay Villalta MD Surgeon Vijay Villalta MD Refrigerator Mover Odette Ribeiro PA-C (No fellow avail) Estimated Blood Loss 100 Findings Consistent with Post-Op Diagnosis Fluids 1000 cc Specimens Right shoulder contents Anesthesia Type General Regional Complications none
--- NOTE | 2023-06-05 10:34 | Operative Report ---
Post Operative Report Pre & Post Diagnosis Operation Date: 06/05/23 07:00 Pre-Op Diagnosis: Right Shoulder Arthritis with Rotator Cuff Tear Post-Op Diagnosis: Right Shoulder Arthritis with Rotator Cuff Tear I identified the patient and participated in the time-out.: Yes Procedure Operation Date: 06/05/23 07:00 Actual Procedures p Right Reverse Total Shoulder Arthroplasty(Right) - Vijay Villalta MD Surgeon Vijay Villalta MD Stone Mill Operator Odette Ribeiro PA-C (No fellow avail) Estimated Blood Loss 100 Findings See Below Right Shoulder ROM Pre-op: FF 160 deg; Abd 160 deg; ER 65 deg; IR 20 deg The anterior half the Supraspinatus was torn and retracted, the capsule between the supraspinatus and Subscapularis was herniating over the Subscapularis due to an effusion, clear yellow fluid. The humeral head was deformed, flattened, with large inferior osteophyte, and loss of articular cartilage of humeral head and glenoid. Osteophyte anterior glenoid. LHB had significant degenerative changes. Right Shoulder ROM Post-op: FF 165 deg; Abd 165 deg; ER 110 deg; IR 35 deg Fluids 1000 cc Specimens Right shoulder contents Anesthesia Type General Regional Complications none Indications Patient is a 82-year-old female who developed right shoulder OA and had a rotator cuff tear with pain and decreased mobility. I recommended that she undergo a right shoulder Reverse TSA. The patient understands the risks of the operation including bleeding, infection, re-operation, damage to nerves and arteries, continued shoulder pain, shoulder stiffness, infection, and/or loosening of the components which may require additional surgery. The patient also understands the risks of heart attack, stroke, pulmonary embolus, and . The patient wished to proceed and the consent form was signed. Description of Procedure IMPLANTS: Arthrex Univers Revers Modular Glenoid System 1) Humeral Stem: 9 Univers Reverse Callery Stem, with size 33 Neutral Suture Cup at 135. 2) Humeral Liner 33, + 3 mm. 3) Glenoid Modular Baseplate 24 mm, 10 deg, full augment, +2 lateralized, & Central post 10 x 20 mm. 4) Glenosphere 33 +4 lateralization / 24 mm. 5) Glenoid Locking screw 5.5 x 28 mm (superior). 6) Glenoid Non-Locking screw 4.5 x 36 mm (inferior). 7) 1.3 mm SutureTape x 3 J DEONDRE Ribeiro is assisting with positioning, retracting, and closure due to fellow not available. PROCEDURE: The patient was taken to the Operating Room and placed in the beach-chair position after administration of an interscalene block and general anesthesia. 2 g of intravenous Ancef were administered. The right shoulder was then prepped and draped in the standard sterile fashion. Sequential compression devices were placed in the legs. TXA 1 g was given pre-op and a second dose was given before prepping the humeral shaft. The patient was identified and a multidisciplinary time-out identified the right shoulder as the correct shoulder and operative limb. First, the coracoid, acromion, clavicle, and planned deltopectoral incision were marked. Sharp dissection was carried down to the deltopectoral interval. The cephalic vein was identified and protected laterally as was the deltoid. The deltopectoral interval was dissected to expose the clavipectoral fascia which was then incised. Blunt dissect was used to separate the deltoid from the the remaining rotator cuff. A self-retaining shoulder retractor was placed beneath the conjoined tendon and deltoid muscle, exposing the subscapularis tendon. The superior 1cm of the Pec major was released. The biceps tendon was identified in its groove and had degeneration it was tenodesed to the Pec major tendon with #1 Vicryl. The biceps tendon was unroofed from its groove, and the rotator interval was split to the base of the coracoid and the biceps was released from the glenoid, significant fluid, clear yellow, was evacuated from the joint. The subscapularis was released off the humerus, care taken to separate from the capsule. Next, the humeral head was dislocated by adducting, extending, and externally rotation and the capsulotomy was carried down all the way around to the posterior aspect of the humeral head, taking care to stay on bone. Any humeral osteophytes anterior, inferiorly were removed with a rongeur to identify the medial calcar on the humeral neck. The humeral intramedullary entry point was entered posterior to the bicipital groove with a 2.4mm guide pin, followed by 6 mm drill, and then IM reamer. The resection guide was attached to the IM reamer and pinned to the humeral head with desired resection of 135. The IM reamer was removed and the humeral head was resected in the standard fashion. The resection protector was placed over the humeral surface. Our attention was drawn to the glenoid. The humerus was retracted and displaced posteriorly. The labrum was circumferentially removed as was the anterior capsule, which was carefully dissected free from the subscapularis tendon. The glenoid was exposed with 90 deg Gisel retractor superiorly, Ney retractor anteriorly, and Batman retractor posteriorly. The glenoid was prepped with curettes to remove any remaining cartilage. Using the specific VIP patient specific glenoid aiming guide for a 24 mm baseplate was used to place the 2.8 mm guide wire. The cannulated entry reamer with positive stop was used in the standard fashion. The glenoid surface was prepped for the baseplate with the glenoid reamer (to match the augment). The modular central post was prepped with cannulated 10 mm drill, to a depth of 20 mm. The baseplate with central post was placed flush to the glenoid. The inferior screw hole was drilled first and non- locking screw placed followed by placing the superior screw which was a locking screw. The glenosphere was inserted onto the baseplate and locked into place in the standard fashion, and was firmly in place. The humerus was dislocated and humeral broaches 5 through 9 were sequentially placed in the humeral shaft until excellent fit. The A/P position of the broach was checked. The central reamer guide was placed. The humeral cup reamer prepped the remainder of the humerus. The humeral shaft had a SutureTape placed through it for later Subscapularis repair. The 9 stem was impacted into place with excellent purchase was achieved. The humeral trial liner +3 mm was placed. The shoulder was reduced with excellent fit and good stability of 1+ translation anteriorly and posteriorly. The shoulder ROM showed improved motion noted above. The definitive humeral liner was then placed. The SutureTape in the shaft and 2 through the suture cup were used to repaired the Subscapularis by tying the sutures to the implant, shaft, and sutures to each other. The ROM and stability was unchanged. The pulsatile lavage was used to copiously irrigate the wound throughout the case. The released pec was repaired, and the deltopectoral interval was re- approximated with #1-Vicryl. The subcutaneous tissue was closed with 3-0 Vircyl, and the skin was closed with ZipLine and Shield. The wounds were dressed with sterile gauze, and Tegaderm. The patient was then transferred to the PACU in stable condition after application of a sling. POST-OP: The patient will be admitted for observation overnight. Patient will be seen by PT/OT prior to discharge. Pain medicine will be used as needed. If dressing remains dry tomorrow with switch to Silverlon dressing. Continue abduction sling 4 weeks. I attest to the content of the Intraoperative Record and any orders documented therein. Any exceptions are noted below.
--- NOTE | 2023-06-05 11:01 | Operative Report ---
Post Operative Report Pre & Post Diagnosis Operation Date: 06/05/23 07:00 Pre-Op Diagnosis: Right Shoulder Arthritis with Rotator Cuff Tear Post-Op Diagnosis: Right Shoulder Arthritis with Rotator Cuff Tear I identified the patient and participated in the time-out.: Yes Procedure Operation Date: 06/05/23 07:00 Actual Procedures p Right Reverse Total Shoulder Arthroplasty(Right) - Vijay Villalta MD Surgeon Vijay Villalta M.D. Label Stamper Odette Ribeiro PA-C (No fellow avail) Estimated Blood Loss 100 Findings Consistent with Post-Op Diagnosis Osteoarthritis right shoulder Specimens Bone and soft tissue/ humeral head Anesthesia Type General Regional Description of Procedure Patient was taken to the operating room, placed under general anesthesia. Given peripheral nerve block preoperatively. Time out performed, prepped and draped in routine sterile fashion. She was given 2gm IV Ancef for surgical prophylaxis, as well as 1 gm IV TXA for bleeding prophylaxis preoperatively. I was present during the entire case and assisted with positioning, tissue retraction, trialing of implants, implantation of hardware, closure and dressings. Please see Dr. Villalta's operative report for further details regarding today's procedure. Patient was awakened and taken to the recovery room in stable condition. I attest to the content of the Intraoperative Record and any orders documented therein. Any exceptions are noted below.
--- NOTE | 2023-06-05 11:28 | XRay Report ---
RIGHT SHOULDER 2 VIEWS CLINICAL HISTORY: Postoperative examination. FINDINGS: 2 portable views of the right shoulder are compared to study dated 01/24/2023. The skeletal structures are osteopenic. A right shoulder arthroplasty is in near anatomic alignment. No acute frac ture is seen. Productive degenerative change is noted at the glenohumeral articulation. Subcutaneous gas and soft tissue swelling overlying the right shoulder are expected postsurgical changes. The imag ed right lung parenchyma appears clear noting dependent atelectasis. IMPRESSION: Expected postoperative findings status post right shoulder arthroplasty. No acute fractur e is seen. Electronically signed by: Kapil Perales M.D. 06/05/2023 11:26 AM
--- NOTE | 2023-06-05 11:28 | Anesthesiology Progress Note ---
Date of Service June 05, 2023 Anesthesia Post Procedure Vital Signs Vital Signs: Temp Pulse Pulse Resp BP BP Pulse Ox 06/05/23 11:15 36.4 C L 81 20 137/78 97 06/05/23 11:05 85 15 137/78 97 06/05/23 10:55 88 12 159/69 H 93 06/05/23 10:49 36.3 C L 87 14 144/74 H 99 06/05/23 05:39 36.7 C 65 20 157/75 H 96 O2 Del Method O2 Flow Rate 06/05/23 11:15 Room Air 06/05/23 11:05 Room Air 06/05/23 10:55 Room Air 06/05/23 10:49 Oxymask 4 06/05/23 05:39 Room Air Transfer of Care Handoff Completed per policy Notes Mental Status: alert / awake / arousable Patient Amnestic to Procedure: Yes Nausea / Vomiting: adequately controlled Pain: adequately controlled Airway Patency, RR, SpO2: stable & adequate BP & HR: stable & adequate Hydration State: stable & adequate Anesthetic Complications: no major complications apparent
[2023-06-05] MEDS ORDERED: METOCLOPRAMIDE HCL INJ 5 MG/ML 2 ML VIAL IV PRN (11:54)
[2023-06-05] MEDS ORDERED: bisacodyL 10 MG SUPP PR PRN (11:54)
[2023-06-05] MEDS ORDERED: NALOXONE HCL 0.4 MG/1 ML VIAL/CARP IV PRN (11:54)
[2023-06-05] MEDS ORDERED: MAGNESIUM HYDROXIDE SUSP 30 ML UDC PO PRN (11:54)
[2023-06-05] MEDS ORDERED: HYDROmorphone INJ 0.5 MG/0.5 ML SYR IV PRN (11:54)
[2023-06-05] MEDS ORDERED: HYDROmorphone INJ 1 MG/ML SYRINGE IV PRN (11:54)
[2023-06-05] MEDS ORDERED: oxyCODONE HCL IR 5 MG TAB (IMMEDIATE RELEASE) PO PRN (11:54)
[2023-06-05] MEDS: KETOROLAC TROMETHAMINE 15 MG/ML VIAL IV SCH (13:14)
[2023-06-05] MEDS: SODIUM CHLORIDE 0.9% 1,000 ML IV SCH (13:14)
[2023-06-05] MEDS: ACETAMINOPHEN 500 MG TAB PO SCH (13:50)
--- NOTE | 2023-06-05 15:34 | Orthopedic Progress Note ---
Date of Service June 05, 2023 Assessment & Plan (1) Osteoarthritis of shoulder due to rotator cuff injury: Plan: POD #0 s/p Reverse right TSA, doing as well as expected. Resume diet. RICE Nursing was going to notify anesthesia about tongue bruise. WBAT BLE, No lifting more than coffee cup RUE. OOB to chair. Sling when up and about, maybe loosened when sitting or sleeping Continue pain control, patient wishes to use Tylenol. Check labs tomorrow. DVT prophylaxis: TEDs 3 weeks, foot pumps while in hospital, ASA 81 mg BID for 4 weeks. PT/OT. D/C planning for rehab vs home with home health visiting nurse /PT. Present on Admission?: Yes Admission and Anticipated Discharge Date Admission Date: June 05, 2023 Subjective Doing ok, ru feeling beat up. Getting some of the feeling back into the hand. Physical Exam Physical Exam: Bruising both sides of her tongue, swollen upper lip. RUE: Dressing is clean, dry, intact. Sensation to light touch intact to IF-> SF, diminished in the thumb. 2+ radial pulse. Motor to Median, Radial, Ulnar, AIN, PIN are intact. Unable to flex at the elbow. Sling in place. Results & Data Vital Signs (Past 12 Hours) Vital Signs Temp Pulse Pulse Resp BP BP Pulse Ox 06/05/23 14:45 36.7 C 94 H 18 126/73 96 06/05/23 13:45 36.5 C 86 16 132/79 95 06/05/23 12:48 18 131/84 93 06/05/23 12:13 36.3 C L 77 18 135/87 94 06/05/23 11:45 36.3 C L 78 16 125/80 96 06/05/23 11:25 77 17 138/78 97 06/05/23 11:15 36.4 C L 81 20 137/78 97 06/05/23 11:05 85 15 137/78 97 06/05/23 10:55 88 12 159/69 H 93 06/05/23 10:49 36.3 C L 87 14 144/74 H 99 06/05/23 05:39 36.7 C 65 20 157/75 H 96 O2 Del Method O2 Flow Rate 06/05/23 14:45 Room Air 06/05/23 13:45 Room Air 06/05/23 12:48 Room Air 06/05/23 12:13 Room Air 06/05/23 11:45 Room Air 06/05/23 11:25 Room Air 06/05/23 11:15 Room Air 06/05/23 11:05 Room Air 06/05/23 10:55 Room Air 06/05/23 10:49 Oxymask 4 06/05/23 05:39 Room Air Laboratory Results Impressions Shoulder X-Ray 06/05/23 10:56 RIGHT SHOULDER 2 VIEWS CLINICAL HISTORY: Postoperative examination. FINDINGS: 2 portable views of the right shoulder are compared to study dated 01/24/2023. The skeletal structures are osteopenic. A right shoulder arthroplasty is in near anatomic alignment. No acute fracture is seen. Productive degenerative change is noted at the glenohumeral articulation. Subcutaneous gas and soft tissue swelling overlying the right shoulder are expected postsurgical changes. The imaged right lung parenchyma appears clear noting dependent atelectasis. IMPRESSION: Expected postoperative findings status post right shoulder arthroplasty. No acute fracture is seen. Electronically signed by: Kapil Perales M.D. 06/05/2023 11:26 AM
--- NOTE | 2023-06-05 15:54 | Communication Note ---
Date of Service: June 05, 2023 I evaluated the patient. The patient had noticeable bruising on B/L sides of her tongue. The patient currently states no pain or numbness. The patient does not have any trouble swallowing and her breathing is normal. I told the patient the bruising will improve. I told her to notify us if her symptoms worsened. The patient was understanding. I also updated the patient's nurse.
[2023-06-05] MEDS: Scopolamine CHECK PATCH PLACEMENT SCH (17:06)
[2023-06-05] MEDS: ceFAZolin 1000MG 1,000 MG/7.5 ML SYR IV SCH (17:06)
[2023-06-05] MEDS: PANTOprazole 40 MG TAB PO SCH (20:57)
[2023-06-05] MEDS: FERROUS SULFATE 325 MG TAB PO SCH (20:57)
[2023-06-05] MEDS: ASCORBIC ACID 500 MG TAB PO SCH (20:57)
[2023-06-05] MEDS: DOCUSATE SODIUM 100 MG CAP PO SCH (20:58)
[2023-06-05] MEDS: SENNA 8.6 MG TAB PO SCH (20:58)
[2023-06-06 06:34] LABS: BUN Creatinine Ratio 26.9 (10-20); Calcium 8.2 mg/dl (8.6-10.3); Creatinine Clr Calc Pharmacy 60.1 ml/min; Est GFR (African American) 95.5 ml/min; Est GFR (Non-African American) 82.4 ml/min; Potassium 3.9 mmol/L (3.5-5.1)
[2023-06-06 06:41] LABS: Hemoglobin 11.1 g/dl (12.0-16.0); Mean Corpuscular Hemoglobin 29.8 pg (25.0-34.0); Mean Corpuscular Hgb Conc 33.6 g/dL (32.0-36.0); Mean Corpuscular Volume 88.5 fL (80.0-100.0); Mean Platelet Volume 9.7 fL (9.4-12.4); Platelet Count 224 K/uL (130-400); RDW Coefficient of Variation 14.4 % (11.5-14.5); RDW Standard Deviation 46.3 fL (36.4-46.3); Red Blood Count 3.73 M/uL (4.20-5.40); White Blood Count 7.08 K/ul (4.8-10.8)
[2023-06-06] MEDS: MULTIVITAMIN TAB PO SCH (08:04)
[2023-06-06] MEDS: CeleBREX 200 MG CAP PO SCH (08:05)
[2023-06-06] MEDS: CHOLECALCIFEROL 10 MCG (400 UNITS) TAB PO SCH (08:05)
[2023-06-06] MEDS: dexAMETHasone 4 MG TAB PO SCH (08:06)
--- NOTE | 2023-06-06 09:00 | Orthopedic Progress Note ---
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 Resume diet. RICE Still has a tongue bruise but no evidence of significant swelling. No difficulty breathing or swallowing. Able to eat without difficulty. WBAT BLE, No lifting more than coffee cup RUE. OOB to chair. Sling when up and about, maybe loosened when sitting or sleeping Continue pain control, patient wishes to use Tylenol. DVT prophylaxis: TEDs 3 weeks, foot pumps while in hospital, ASA 81 mg BID for 4 weeks. PT/OT. D/C planning for rehab vs home with home health visiting nurse /PT. All questions were answered today. She understands and agrees with the plan. Admission and Anticipated Discharge Date Admission Date: June 05, 2023 Supervising Physician Co-Signing Physician Notes I, Dr. Villalta, saw and examined the patient. I discussed the management with my PA. I reviewed my PAs note and agree with the documented findings and attest to completing the substantive portion (medical decision making)/ plan of care I developed. Subjective States that she did well overnight. She has some discomfort but no significant pain. She has been managing with extra strength Tylenol. She states that all of the feeling is back in her right hand. She has no nausea or vomiting. She tolerated a regular breakfast this morning. She is thinking of going home with home health or [facility] if approved. Denies any chest pain or shortness of breath. States she has been up out of bed ambulating in the room. Overall feels good. Physical Exam Musculoskeletal: Exam of her right upper extremity: She has full range of motion and movement of her fingers, wrist, forearm and elbow. Distal sensation is normal. Capillary fill is brisk. Distal pulses are 1+. Strength is 5/5 of her fingers wrist and forearm as well as flexion and extension with the elbow. Forward elevation and abduction not attempted. She does tolerate gentle internal and external rotation with her arm at his side. No edema into the right upper extremity. Postoperative dressings noted with blood. Mostly collected at the distal aspect of the dressing. Dressing was removed and her incision is clean, dry and intact that are cleansed with a sterile saline white. Zipline and shield is in place. Skin edges are well-approximated and no active bleeding. No underlying hematoma or seroma appreciated. Silverlon dressing was applied. No skin blisters underneath the Tegaderm dressing. No ecchymosis appreciated today in the upper arm or axilla. Results & Data Vital Signs (Past 12 Hours) Vital Signs Temp Pulse Resp BP Pulse Ox O2 Del Method 06/06/23 07:25 36.5 C 69 16 108/70 98 Room Air 06/06/23 05:35 76 108/65 06/06/23 03:32 36.8 C 80 16 93/60 L 94 Room Air 06/05/23 23:45 36.7 C 78 16 107/65 94 Room Air 06/05/23 21:00 Room Air Laboratory Results 06/06/23 Range/Units 05:59 WBC 7.08 (4.8-10.8) K/ul RBC 3.73 L (4.20-5.40) M/uL Hgb 11.1 L (12.0-16.0) g/dl Hct 33.0 L (37.0-47.0) % MCV 88.5 (80.0-100.0) fL MCH 29.8 (25.0-34.0) pg MCHC 33.6 (32.0-36.0) g/dL RDW Std Deviation 46.3 (36.4-46.3) fL RDW Coeff of Favian 14.4 (11.5-14.5) % Plt Count 224 (130-400) K/uL MPV 9.7 (9.4-12.4) fL Sodium 140 (136-145) mmol/L Potassium 3.9 (3.5-5.1) mmol/L Chloride 109 H (98-107) mmol/L Carbon Dioxide 27 (21-32) mmol/L Anion Gap 4 (3-11) BUN 18 (6-23) mg/dl Creatinine 0.67 (0.6-1.2) mg/dl Est Cr Clr Drug Dosing 60.1 ml/min Est GFR ( Amer) 95.5 ml/min Est GFR (Non-Af Amer) 82.4 ml/min BUN/Creatinine Ratio 26.9 H (10-20) Glucose 90 (70-99(Fasting)) mg/dl Calcium 8.2 L (8.6-10.3) mg/dl
--- NOTE | 2023-06-06 09:11 | Discharge Summary ---
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 Villalta on June 05, 2023. Her surgery was performed with general anesthesia and a peripheral nerve block. She was given 2 g of IV Ancef for surgical prophylaxis preoperatively which was continued for 24 hours after surgery. She was also given 1 g of IV TXA preoperatively and that was repeated at the end of the case. She did well without any intraoperative complications. In the recovery room x-rays of her right shoulder were obtained and showed a stable right total shoulder arthroplasty. Postoperatively, she was allowed out of bed, weight-bear as tolerated. Sling on right arm when out of bed. While sitting or resting in bed she can loosen the sling for comfort. Her home medications were continued. She was given extra strength Tylenol, oxycodone and IV Dilaudid as needed for pain. Her pain was well-controlled with the p.o. Tylenol during her inpatient stay. She was given a regular diet. Her vital signs remained stable. His CBC and BMP was performed on postoperative day 1 which was within normal limits. DVT prophylaxis was provided with AV impulse boots while in the hospital, knee-high MADI stockings x 3 weeks postoperatively as well as aspirin 81 mg twice daily for 4 weeks after surgery. She was seen and evaluated by physical therapy and Occupational Therapy and was deemed safe for discharge to home. Case management was involved and patient requested [facility] which was denied, so home health arrangements were made. She was discharged to her home in stable condition on June 06, 2023. Discharge instructions were reviewed. All questions were answered. She understands and agrees with the plan.
== END 2023-06-06 11:22 | disposition home health service (06) ==
LOC: 3E 05:18 → ASU 05:18